=== PATIENT | female | born 1970 | race Caucasian/White ===

== ENCOUNTER 2021-11-30 03:50 | Emergency (ER) | payer SELFPAY ==
[2021-11-30] MEDS ORDERED: LORazepam 2 MG/ML SDV IVPUSH ONE (04:15)
[2021-11-30] MEDS ORDERED: Sodium Chloride 0.9% 10 ML Syringe FLUSH PRN (04:15)
== END 2021-11-30 04:26 | disposition left against medical advice (07) ==
LOC: JP.ED 03:50
DX: F41.0 Panic disorder [episodic paroxysmal anxiety] (principal); R79.89 Other specified abnormal findings of blood chemistry; Z88.8 Allergy status to other drugs, medicaments and biological substances
CPT/HCPCS: 99282; 99283

== ENCOUNTER 2024-10-14 00:49 | Emergency (ER) | payer OTHER ==
[2024-10-14 01:29] LABS: BASOPHILS ABSOLUTE AUTO 0.07 K/uL (0.00-0.10); BASOPHILS PERCENT AUTO 0.7 % (0.1-1.3); EOSINOPHILS ABSOLUTE AUTO 0.15 K/uL (0.00-0.40); EOSINOPHILS PERCENT AUTO 1.6 % (0.0-5.4); IMMATURE GRAN ABSOLUTE AUTO 0.05 K/uL (0.00-0.23); IMMATURE GRAN PERCENT AUTO 0.5 % (0.0-0.7); LYMPHOCYTES ABSOLUTE AUTO 2.39 K/uL (0.8-3.3); LYMPHOCYTES PERCENT AUTO 25.0 % (11.4-47.7); MONOCYTES ABSOLUTE AUTO 0.50 K/uL (0.20-0.90); MONOCYTES PERCENT AUTO 5.2 % (3.3-12.6); NEUTROPHILS ABSOLUTE AUTO 6.39 K/uL (1.0-7.6); NEUTROPHILS PERCENT AUTO 67.0 % (40.0-78.1); PLATELET COUNT,PLT 253 K/uL (130-375); RED BLOOD CELL COUNT 4.70 M/uL (3.77-5.24); WHITE BLOOD CELL COUNT,WBC 9.6 K/uL (3.2-11.0)
[2024-10-14] MEDS: LORazepam 2 MG/ML SDV IM ONE (01:34)
[2024-10-14 01:55] LABS: BLOOD UREA NITROGEN,BUN 12 mg/dL (7-18); CARBON DIOXIDE,CO2 25 mmol/L (21-32); CHLORIDE,CL 106 mmol/L (100-108); CREATININE 0.7 mg/dL (0.6-1.0); ESTIMATED GFR 103 mL/min (>60); GLUCOSE RANDOM 106 mg/dL (74-106); POTASSIUM,K 4.0 mmol/L (3.6-5.2); SODIUM,NA 143 mmol/L (140-148); TROPONIN I HIGH SENSITIVITY < 4.0 pg/mL (<=60.3)
[2024-10-14] MEDS ORDERED: Ketorolac 30 MG/ML SDV IM ONE (03:31)
== END 2024-10-14 03:56 | disposition home or self-care (01) ==
LOC: JP.ED 00:49
DX: F10.10 Alcohol abuse, uncomplicated (principal); Y90.6 Blood alcohol level of 120-199 mg/100 ml; Z88.8 Allergy status to other drugs, medicaments and biological substances
CPT/HCPCS: 36415; 80048; 80307; 83605; 84484; 85025; 96372; 99284; J1790; J2060